=== PATIENT | male | born 1950 | race American Indian/Alaskan Native ===

== ENCOUNTER 2022-06-09 09:13 | Inpatient (IN) | payer OTHER ==
[~2022-06-09] VITALS: Ht 177.8 cm; Wt 82.1 kg
[2022-06-09] MEDS ORDERED: EUTHYROX50 MCG PO (09:34)
[2022-06-09 09:48] LABS: BASOPHILS PERCENT AUTO 1 % (0-2); EOSINOPHILS ABSOLUTE AUTO 0.16 K/mm3 (0.00-0.68); EOSINOPHILS PERCENT AUTO 2 % (0-6); Hematocrit 45.7 % (37.0-53.0); Hemoglobin 15.7 g/dL (13.5-17.5); IMMATURE GRAN ABSOLUTE AUTO 0.03 K/mm3 (0.00-0.10); IMMATURE GRAN PERCENT AUTO 0 % (0-1); LYMPHOCYTES ABSOLUTE AUTO 2.47 K/mm3 (0.84-5.20); LYMPHOCYTES PERCENT AUTO 31 % (21-46); MONOCYTES PERCENT AUTO 8 % (4-13); Mean Corpuscular HGB 31.4 pg (26.0-34.0); Mean Corpuscular HGB Conc 34.4 g/dL (31.5-36.5); Mean Corpuscular Volume 91 fL (80-100); NEUTROPHILS ABSOLUTE AUTO 4.65 K/mm3 (1.96-9.15); NEUTROPHILS PERCENT AUTO 58 % (41-73); Platelet Count 273 K/mm3 (150-400); RDW Coefficient Variation 13.6 % (11.7-14.2); RDW Standard Deviation 46.2 fL (35.1-46.3); White Blood Cell Count 8.01 K/mm3 (4.00-11.30)
[2022-06-09 10:03] LABS: Albumin, Blood 3.6 g/dL (3.4-5.0); Albumin/Globulin Ratio 0.9 (0.8-1.8); Bilirubin, Total 0.4 mg/dL (0.1-1.0); Bun/Creatinine Ratio 9.6 (12.0-20.0); Calcium, Blood 9.5 mg/dL (8.5-10.1); Creatinine, Blood 0.83 mg/dL (0.60-1.20); Globulin, Blood 3.8 g/dL (2.2-4.0); Potassium, Blood 4.1 mmol/L (3.5-5.5); Total Protein, Blood 7.4 g/dL (6.4-8.2)
[2022-06-09 14:11] LABS: Anti-Xa UFH, PHA Monitoring <0.10 IU/mL; International Normalized Ratio 0.97; Prothrombin Time Results 10.2 Sec (9.7-11.5)
[2022-06-09 14:43] LABS: Influenza A, PCR NEGATIVE (NEGATIVE); Influenza B, PCR NEGATIVE (NEGATIVE); Resp Syncytial Virus, PCR NEGATIVE (NEGATIVE); SARS-Cov-2 (COVID-19) PCR, MMC NEGATIVE (NEGATIVE)
[2022-06-09] MEDS ORDERED: MULVITA PO (15:13)
[2022-06-09] MEDS ORDERED: VITAMIN D5000 UNIT PO (15:13)
--- NOTE | 2022-06-09 17:17 | NUR ---
SHIFT SUMMARY: PATIENT ADMIT TO PCU AT 1500. ALERT AND ORIENTED X4. ABLE TO STAND AND TRANSFER. WALKS IND AT BASELINE. DENIES NUMBNESS/TINGLING. ON ROOM AIR SATING ABOVE 95%. DENIES SOB. TELE SHOWING SINUS RHYTHM WITH PVC'S. HR 50-60'S. DENIES CHEST PAIN/PRESSURE AT THIS TIME. NITRO PATCH IN PLACE TO LEFT UPPER CHEST. BP STABLE. DENIES HEADACHE. MINIMAL EDEMA TO BLE. DENIES ABDOMINAL PAIN/NAUSEA. DIET ORDERED FOR TONIGHT. PLAN FOR NPO AFTER MIDNIGHT. DR. Dave IN TO SEE PATIENT, PLAN FOR ANGIO 7/16 AM. TRENDING TROPS, PLAN TO TREND UNTIL THEY START TO DECREASE. TROPS ORDERED OVERNIGHT. HEPARIN INFUSING AT 15 UNITS/KG/HR. DAILY SMOKER. THIS RN PROVIDED EDUCATION ON SMOKING CESSATION, PATIENT DENIES NEED FOR FURTHER EDUCATION AND IS NOT INTERESTED IN QUITING. USING URINAL AT BEDSIDE. CALLING TO USE BATHROOM. ORIENTED TO ROOM/UNIT. MED REC COMPLETED. DENIES NEEDS AT THIS TIME. WILL CONTINUE TO MONITOR AND REPORT OFF TO ONCOMING RN.
[2022-06-10 05:16] LABS: BASOPHILS PERCENT AUTO 1 % (0-2); EOSINOPHILS ABSOLUTE AUTO 0.25 K/mm3 (0.00-0.68); EOSINOPHILS PERCENT AUTO 2 % (0-6); Hematocrit 41.8 % (37.0-53.0); Hemoglobin 14.4 g/dL (13.5-17.5); IMMATURE GRAN ABSOLUTE AUTO 0.04 K/mm3 (0.00-0.10); IMMATURE GRAN PERCENT AUTO 0 % (0-1); LYMPHOCYTES PERCENT AUTO 30 % (21-46); MONOCYTES ABSOLUTE AUTO 0.71 K/mm3 (0.16-1.47); MONOCYTES PERCENT AUTO 6 % (4-13); Mean Corpuscular HGB 31.2 pg (26.0-34.0); Mean Corpuscular HGB Conc 34.4 g/dL (31.5-36.5); Mean Corpuscular Volume 91 fL (80-100); Mean Platelet Volume 8.8 fL (9.1-12.4); NEUTROPHILS ABSOLUTE AUTO 6.69 K/mm3 (1.96-9.15); NEUTROPHILS PERCENT AUTO 60 % (41-73); Platelet Count 233 K/mm3 (150-400); RDW Coefficient Variation 13.5 % (11.7-14.2); Red Blood Cell Count 4.62 M/mm3 (4.30-5.90); White Blood Cell Count 11.09 K/mm3 (4.00-11.30)
[2022-06-10 06:12] LABS: Anion Gap 6 mmol/L (6-16); Blood Urea Nitrogen 10 mg/dL (8-24); Bun/Creatinine Ratio 11.6 (12.0-20.0); CHOL/HDL RATIO 4.4; CO2, Blood 23 mmol/L (21-32); Calcium, Blood 9.2 mg/dL (8.5-10.1); Chloride, Blood 108 mmol/L (98-108); Cholesterol 149 mg/dL (50-200); Creatinine, Blood 0.86 mg/dL (0.60-1.20); Glomerular Filtration Rate 91 (60-); Glucose, Blood 100 mg/dL (70-99); HDL Cholesterol 34 mg/dL (>39); LDL/HDL RATIO 2.8; Low Density Lipoprotein Chol 95 mg/dL (0-110); Potassium, Blood 4.1 mmol/L (3.5-5.5); Sodium, Blood 137 mmol/L (136-145); Triglycerides 101 mg/dL (30-160); Very Low Density Lipoprot Chol 20 mg/dL (6-32)
--- NOTE | 2022-06-10 06:53 | NUR ---
NO ACUTE EVENTS OVERNIGHT. DENIED CHEST PAIN THROUGHOUT THE NIGHT. DID HAVE A BRIEF EPISODE OF SOME PAIN TO HIS LEFT SHOULDER RATED 3-4/10. RESOLVED ON ITS OWN. HEAPRIN DRIP INFUSING AT 15 UNITS/KG/HOUR. ANTI-XA THERAPEUTIC X 2 DRAWS. NO CHANGES MADE TO HEAPARIN INFUSION RATE. NPO SINCE MIDNIGHT WITH EXCEPTION OF MEDS.
--- NOTE | 2022-06-10 07:55 | NUR ---
AM NOTE: PATIENT ALERT AND ORIENTED X4. NEURO WNL. HISTORY OF PTSD, ASKING STAFF TO KNOCK AND CALL OUT NAME PRIOR TO ENTERING WELL LEAVING LIGHTS ON. ABLE TO STAND AND WALK TO BATHROOM WITH SBA. ON ROOM AIR SATING ABOVE 95%. DENIES SOB. TELE SHOWING SINUS RODRIGO-SINUS RHYTHM WITH PVC'S. HR 50-60'S. DENIES CHEST PAIN/PRESSURE. STATES HE HAD SOME ACHES IN HIS LEFT SHOULDER LAST NIGHT. NITRO PATCH IN PLACE. BP STABLE. MINIMAL EDEMA IN BLE. HEPARIN DRIP INFUSING, SEE EMAR. NPO AT THIS TIME. PLAN FOR ANGIO THIS AM. DENIES ABDOMINAL PAIN/NAUSEA. MORNING MEDS WITH A FEW SIPS OF WATER. CALL LIGHT IN REACH. DENIES NEEDS AT THIS TIME. WILL CONTINUE TO MONITOR.
--- NOTE | 2022-06-10 10:19 | NUR ---
POST ANGIO: PATIENT BACK TO ROOM AROUND 0950. POST VITAL SIGNS IN PROGRESS. RECIEVEING ECHO AT THIS TIME, THEN PLAN FOR US AORTA. WILL BE NPO UNTIL AFTER US. RIGHT RADIAL SITE WNL. TR BAND IN PLACE WITH 10ML. STRONG RADIAL PULSE AND GREAT PLETH ON SPO2 BIOX. SITE REMAINS SOFT/NONTENDER. NO SIGNS OF BLEEDING OR SWELLING. ARM BOARD IN PLACE. PATIENT EDUCATED ON POST ANGIO PRECAUTIONS. BP SBP 90-110'S. AND HR 50-60'S. DENIES CHEST PAIN. NITRO PATCH REMOVED. PLAN TO RESTART HEPARIN AT 1340, SPOKE WITH PHARMACY. WILL START TO REMOVE AIR FROM TR BAND AT 1140.
--- NOTE | 2022-06-10 17:58 | NUR ---
SHIFT SUMMARY: NO ACUTE CHANGES, SEE PREVIOUS NOTES. REMAINS ON ROOM AIR. NO CHANGES TO TELE. HEPARIN DRIP INFUSING. DENIES CHEST PAIN/PRESSURE. BP STABLE. DENIES OVERALL PAINS. COMPLAINS OF CONSTIPATION. DR. SMALLWOOD CALLED AND BOWEL CARE MED ORDERED. PATIENT READING BOOK AT THIS TIME. RIGHT RADIAL SITE REMAINS WNL. VERY SCANT DRAINAGE AT SITE. NO SIGNS OF BLEEDING OF HEMATOMA. REMAINS SOFT AND NONTENDER. TEGADERM IN PLACE WELL ARMBOARD. POST OP PRECAUTIONS AND EDUCATION REVIEWED. PATIENT SON HAS BEEN UPDATED VIA PATIENT. CALL LIGHT IN REACH. UP TO BATHROOM WITH SBA. WILL CONTINUE TO MONITOR AND REPORT OFF TO ONCOMING RN.
[2022-06-11 04:16] LABS: Hematocrit 41.1 % (37.0-53.0); Hemoglobin 14.1 g/dL (13.5-17.5)
[2022-06-11 04:34] LABS: Calcium, Blood 9.3 mg/dL (8.5-10.1); Creatinine, Blood 0.83 mg/dL (0.60-1.20)
--- NOTE | 2022-06-11 07:15 | NUR ---
NO ACUTE EVENTS OVERNIGHT. PT APPEARED TO AND REPORTS SLEEPING COMFORTABLY THROUGHOUT THE NIGHT. RIGHT RADIAL ACCESS SITE WITHIN NORMAL LIMITS. EDUCATION PROVIDED REGARDING SITE CARE POST DISCHARGE AND LIFITING/USE RESTRICTIONS FOR 72 HOURS. EDUCATION ALSO PROVIDED REGARDING NEW MEDICATION CARDIZEM, POSSIBLE SIDE EFFECTS, AND MONITORING OF HEART RATE WITH THE INTRODUCTION OF THIS MEDICARTION. ADVISED PATIENT HE WILL BE SEEN BY CARDIAC INTERVENTIONALIST PRIOR TO HIS DISCHARGE TO DISCUSS FINDINGS OF HIS ANGIOGRAM AND TREATMENT PLAN GOING FORWARD.
--- NOTE | 2022-06-11 07:47 | NUR ---
AM NOTE: ALERT AND ORIENTED X4. VERY ANXIOUS TO GET HOME. STATES "I AM LEAVING TODAY". PATIENT EDUCATED ON MORN MEDS AND POST CARDIAC CATH. DENIES NUMBNESS/TINGLING. ON ROOM AIR. TELE SHOWING SINUS RODRIGO - SINUS RHYTHM WITH HR 50-60'S. BP STABLE. DENIES CHEST PAIN/PRESSURE. S/P ANGIO WITH RIGHT RADIAL SITE. VERY SCANT DRAINAGE UNDER TEGADERM THAT REMAINS UNCHANGED. SOFT AND NONTENDER. DENIES ABDOMINAL PAIN/NAUSEA. EATING BREAKFAST AT THIS TIME. VERY ANXIOUS TO GET HOME, REPEATEDLY ASKING WHEN THE DOCTOR WILL BE IN. CALL LIGHT IN REACH. DENIES OTHER NEEDS AT THIS TIME. WILL CONTINUE TO MONITOR.
--- NOTE | 2022-06-11 08:25 | NUR ---
HEPARIN STOPPED THIS AM, PHARMACY CALLED TO NOTIFY. TRANSITIONED TO [facility]. SEE EMAR FOR WHEN HEPARIN WAS STOPPED. EDUCATED PATIENT ON NEW MEDICATION.
[2022-06-11] MEDS ORDERED: Acetaminophen325 M1 PO (10:37)
[2022-06-11] MEDS ORDERED: CLOP75 PO (10:38)
[2022-06-11] MEDS ORDERED: ATOR40TA PO (10:38)
[2022-06-11] MEDS ORDERED: DILT120 PO (10:40)
[2022-06-11] MEDS ORDERED: XARELTO PO (10:41)
--- NOTE | 2022-06-11 10:54 | NUR ---
DISCHARGE: NO ACUTE CHANGES. VITAL SIGNS REMAINS STABLE. PATIENT ANXIOUS TO GET HOME. DISCHARGE INSTRUCTIONS REVIEWED IN DETAIL. THIS INCLUDED NEW MEDICATIONS, FOLLOW UP APPOINTMENTS, POST ANGIO CARE, RIGHT RADIAL WRIST PRECAUTIONS AND SIGNS/SYMPTOMS TO CALL OR COME INTO ER FOR. IV REMOVED WNL. PATIENT LEFT UNIT WITH ALL PERSONAL BELONGINGS VIA WHEELCHAIR.
== END 2022-06-11 10:52 | disposition home or self-care (01) | DRG 282 ==
LOC: ER 09:13 → PCU 13:07
PROVIDERS: Physician Assistant; ADMIT Internal Medicine
PROC: B2111ZZ Fluoroscopy of Multiple Coronary Arteries using Low Osmolar Contrast (ICD-10-PCS; principal; 2022-06-10)
DX: I21.4 Non-ST elevation (NSTEMI) myocardial infarction (principal); E03.9 Hypothyroidism, unspecified; E78.5 Hyperlipidemia, unspecified; K21.9 Gastro-esophageal reflux disease without esophagitis; F43.10 Post-traumatic stress disorder, unspecified; I77.811 Abdominal aortic ectasia; E11.9 Type 2 diabetes mellitus without complications; Z88.5 Allergy status to narcotic agent; Z20.822 Contact with and (suspected) exposure to COVID-19; Z79.899 Other long term (current) drug therapy; M81.0 Age-related osteoporosis without current pathological fracture; Z96.652 Presence of left artificial knee joint; Z98.42 Cataract extraction status, left eye; Z98.41 Cataract extraction status, right eye; F17.210 Nicotine dependence, cigarettes, uncomplicated; I25.10 Atherosclerotic heart disease of native coronary artery without angina pectoris
CPT/HCPCS: 0241U; 36415; 71045; 76775; 76937; 80048; 80053; 80061; 84484; 85014; 85018; 85025; 85520; 85610; 85730; 93005; 93010; 93306; 93454; 96365; 99152; 99153; 99285-25; A9270; C1769; C1887; C1894; J1644; J2250; J3010; J7030; J7040; Q9967

== ENCOUNTER 2022-11-08 13:19 | Observation (INO) | payer OTHER ==
[~2022-11-08] VITALS: Ht 180.3 cm; Wt 80.7 kg
[~2022-11-08 13:19] MED LIST: ATOR40TA PO; Acetaminophen325 M1 PO; CLOP75 PO; DILT120 PO; EUTHYROX50 MCG PO; MULVITA PO; VITAMIN D5000 UNIT PO; XARELTO PO
[2022-11-08 14:27] LABS: BASOPHILS ABSOLUTE AUTO 0.08 K/mm3 (0.00-0.23); BASOPHILS PERCENT AUTO 1 % (0-2); EOSINOPHILS PERCENT AUTO 2 % (0-6); Hematocrit 34.2 % (37.0-53.0); Hemoglobin 11.8 g/dL (13.5-17.5); IMMATURE GRAN ABSOLUTE AUTO 0.02 K/mm3 (0.00-0.10); IMMATURE GRAN PERCENT AUTO 0 % (0-1); LYMPHOCYTES ABSOLUTE AUTO 2.77 K/mm3 (0.84-5.20); LYMPHOCYTES PERCENT AUTO 42 % (21-46); MONOCYTES ABSOLUTE AUTO 0.61 K/mm3 (0.16-1.47); MONOCYTES PERCENT AUTO 9 % (4-13); Mean Corpuscular HGB 31.6 pg (26.0-34.0); Mean Corpuscular HGB Conc 34.5 g/dL (31.5-36.5); Mean Corpuscular Volume 91 fL (80-100); Mean Platelet Volume 8.7 fL (9.1-12.4); NEUTROPHILS ABSOLUTE AUTO 3.01 K/mm3 (1.96-9.15); NEUTROPHILS PERCENT AUTO 46 % (41-73); Platelet Count 390 K/mm3 (150-400); RDW Coefficient Variation 13.8 % (11.7-14.2); RDW Standard Deviation 45.9 fL (35.1-46.3); Red Blood Cell Count 3.74 M/mm3 (4.30-5.90); White Blood Cell Count 6.59 K/mm3 (4.00-11.30)
[2022-11-08 14:54] LABS: Albumin, Blood 3.4 g/dL (3.4-5.0); Albumin/Globulin Ratio 0.8 (0.8-1.8); Bilirubin, Total 0.5 mg/dL (0.1-1.0); Bun/Creatinine Ratio 8.6 (12.0-20.0); Calcium, Blood 9.5 mg/dL (8.5-10.1); Creatinine, Blood 1.05 mg/dL (0.60-1.20); Potassium, Blood 4.1 mmol/L (3.5-5.5); Total Protein, Blood 7.4 g/dL (6.4-8.2)
[2022-11-09 05:51] LABS: BASOPHILS ABSOLUTE AUTO 0.09 K/mm3 (0.00-0.23); BASOPHILS PERCENT AUTO 1 % (0-2); EOSINOPHILS ABSOLUTE AUTO 0.12 K/mm3 (0.00-0.68); EOSINOPHILS PERCENT AUTO 2 % (0-6); Hematocrit 33.2 % (37.0-53.0); Hemoglobin 11.4 g/dL (13.5-17.5); IMMATURE GRAN ABSOLUTE AUTO 0.02 K/mm3 (0.00-0.10); IMMATURE GRAN PERCENT AUTO 0 % (0-1); LYMPHOCYTES ABSOLUTE AUTO 2.28 K/mm3 (0.84-5.20); LYMPHOCYTES PERCENT AUTO 34 % (21-46); MONOCYTES ABSOLUTE AUTO 0.64 K/mm3 (0.16-1.47); MONOCYTES PERCENT AUTO 10 % (4-13); Mean Corpuscular HGB 31.6 pg (26.0-34.0); Mean Corpuscular HGB Conc 34.3 g/dL (31.5-36.5); Mean Corpuscular Volume 92 fL (80-100); Mean Platelet Volume 8.8 fL (9.1-12.4); NEUTROPHILS ABSOLUTE AUTO 3.48 K/mm3 (1.96-9.15); NEUTROPHILS PERCENT AUTO 52 % (41-73); Platelet Count 372 K/mm3 (150-400); RDW Coefficient Variation 13.8 % (11.7-14.2); RDW Standard Deviation 46.5 fL (35.1-46.3); Red Blood Cell Count 3.61 M/mm3 (4.30-5.90); White Blood Cell Count 6.63 K/mm3 (4.00-11.30)
[2022-11-09 06:08] LABS: Bun/Creatinine Ratio 10.2 (12.0-20.0); Calcium, Blood 9.2 mg/dL (8.5-10.1); Creatinine, Blood 0.98 mg/dL (0.60-1.20); Potassium, Blood 4.1 mmol/L (3.5-5.5)
[2022-11-09] MEDS ORDERED: PANT40 PO (09:13)
--- NOTE | 2022-11-09 09:29 | NUR ---
DISCHARGE PATIENT AMBULATED OUT OF ER. DISCHARGE INSTRUCTIONS EXPLAINED TO PATIENT. PATIENT STATED UNDERSTANDING. PACKET SENT WITH PATIENT. BELONGINGS SENT WITH PATIENT. IV REMOVED WITHOUT DIFFICULTY. TELE REMOVED WITHOUT DIFFICULTY. NEW MEDICATIONS SENT TO PREFERRED PHARMACY. PATIENT EDUCATED ON STOPPING XARELTO, CONTINUING PLAVIX, AND STARTING PROTINIX. PATIENT TO SCHEDULE FOLLOW UP WITH PCP AND GI.
== END 2022-11-09 09:28 | disposition home or self-care (01) ==
LOC: ER 13:19 → ERHOLD 13:20
PROVIDERS: Physician Assistant; ADMIT Student in an Organized Health Care Education/Training Program
DX: K92.1 Melena (principal); D64.9 Anemia, unspecified; Z53.29 Procedure and treatment not carried out because of patient's decision for other reasons; I25.10 Atherosclerotic heart disease of native coronary artery without angina pectoris; Z79.01 Long term (current) use of anticoagulants; Z79.02 Long term (current) use of antithrombotics/antiplatelets; F17.210 Nicotine dependence, cigarettes, uncomplicated; I25.2 Old myocardial infarction; Z88.5 Allergy status to narcotic agent; E78.5 Hyperlipidemia, unspecified; E03.9 Hypothyroidism, unspecified; K22.0 Achalasia of cardia
CPT/HCPCS: 36415; 80048; 80053; 83690; 85025; 96374; 99285-25; A9270; C9113; G0378